=== PATIENT | male | born 1935 | race Caucasian/White ===

== ENCOUNTER 2017-01-21 12:35 | Day surgery (SDC) | payer MEDICARE, BC ==
[2017-01-20 10:28] LABS: HEMOGLOBIN 16.3 g/dL (13.7-18.0)
[2017-01-20 10:35] LABS: BLOOD UREA NITROGEN 13 mg/dL (7-18)
[~2017-01-21] VITALS: Ht 172.7 cm; Wt 95.4 kg
[~2017-01-21 12:35] MED LIST: ASPI-496 PO; ATOR20TA9 PO; CEPH-376 PO; GABA300C10 PO; HYDR-3307 PO; LOSA50TA6 PO; VIT1CAPS10 PO; atorvastatin PO; gabapentin PO
[2017-01-21 13:27] VITALS: BP 137/73
[2017-01-21] MEDS ORDERED: SODIUM CHLORIDE 0.9% 1,000 ML IV SCH (14:07)
[2017-01-21] MEDS ORDERED: LIDOCAINE 2%, 20ML ONE ×2 (14:47→14:55)
[2017-01-21] MEDS ORDERED: MIDAZOLAM 1 MG/ML, 5ML ONE (14:56)
[2017-01-21] MEDS ORDERED: HEPARIN 5,000 UNITS/ML, 1ML ONE (14:57)
[2017-01-21] MEDS ORDERED: FENTANYL PF 100 MCG/2ML ONE (14:57)
[2017-01-21] MEDS ORDERED: FLUMAZENIL 0.1 MG/1 ML, 5ML ONE (14:57)
[2017-01-21] MEDS ORDERED: NALOXONE 1 MG/ML, 2ML ONE (14:58)
[2017-01-21] MEDS ORDERED: VISIPAQUE 270 MG/ML, 150ML BOTTLE ONE (16:07)
[2017-02-11] MEDS ORDERED: CLOP75TA22 PO (07:56)
[2017-02-11] MEDS ORDERED: ENOX40SY4 SQ (07:58)
[2017-02-11] MEDS ORDERED: GABA300C10 PO (07:59)
[2017-02-11] MEDS ORDERED: INSU100V5 SQ-INSULIN (08:00)
[2017-02-11] MEDS ORDERED: ACET325T26 PO (08:01)
[2017-02-11] MEDS ORDERED: DOCU-30 PO (08:02)
[2017-02-11] MEDS ORDERED: HYDR-3138 PO (08:03)
== END 2017-01-21 18:10 | disposition home or self-care (01) ==
LOC: OUT 12:35
PROVIDERS: ATTEND Surgery
DX: I70.223 Atherosclerosis of native arteries of extremities with rest pain, bilateral legs (principal); I70.0 Atherosclerosis of aorta; I10 Essential (primary) hypertension; E78.5 Hyperlipidemia, unspecified; E11.9 Type 2 diabetes mellitus without complications; E66.9 Obesity, unspecified; Z68.32 Body mass index [BMI] 32.0-32.9, adult; Z90.49 Acquired absence of other specified parts of digestive tract; M17.10 Unilateral primary osteoarthritis, unspecified knee; M16.10 Unilateral primary osteoarthritis, unspecified hip; Z87.891 Personal history of nicotine dependence; Z82.49 Family history of ischemic heart disease and other diseases of the circulatory system; Z83.49 Family history of other endocrine, nutritional and metabolic diseases
CPT/HCPCS: 36200; 36415; 75625; 75716; 80048; 85025; C1751; C1769; C1894; J1644; J2250; J2310; J3010; J3490; Q9966; 36215; 36245; 75630; 76937; 99156; 99157

== ENCOUNTER → 2017-01-25 | Outpatient (CLI) | payer MEDICARE, BC | END | disposition home or self-care (01) | LOC: CVU 10:30 | PROVIDERS: ATTEND Surgery | DX: I65.23 Occlusion and stenosis of bilateral carotid arteries (principal) | CPT/HCPCS: 93880 ==

== ENCOUNTER → 2017-03-24 | Outpatient (CLI) | payer MEDICARE, BC ==
[~2017-03-24] MED LIST changes: +ACET325T26 PO; +CLOP75TA22 PO; +DOCU-30 PO; +ENOX40SY4 SQ; +HYDR-3138 PO; +INSU100V5 SQ-INSULIN; +REGADENOSON 0.4 MG/5 ML SYRINGE ONE
== END | disposition home or self-care (01) ==
LOC: CFH 08:59
PROVIDERS: ATTEND Physician Assistant Medical
DX: Z01.810 Encounter for preprocedural cardiovascular examination (principal); I25.9 Chronic ischemic heart disease, unspecified; I08.3 Combined rheumatic disorders of mitral, aortic and tricuspid valves; I37.1 Nonrheumatic pulmonary valve insufficiency
CPT/HCPCS: 78452; 93017; 93306; A9502; J2785

== ENCOUNTER 2017-04-05 14:29 | Emergency (ER) | payer MEDICARE, BC ==
[~2017-04-05] VITALS: Ht 172.7 cm; Wt 95.5 kg
[~2017-04-05 14:29] MED LIST changes: -REGADENOSON 0.4 MG/5 ML SYRINGE ONE
[2017-04-05] MEDS ORDERED: SODIUM CHLORIDE 0.9% 1,000ML IVBOLUS ONE (15:30)
[2017-04-05] MEDS ORDERED: SODIUM CHLORIDE FLUSH 10ML SYR IVF ONE (15:30)
[2017-04-05 15:51] LABS: BLOOD UREA NITROGEN 18 mg/dL (7-18)
[2017-04-05] MEDS ORDERED: DILTIAZEM 5 MG/ML, 5ML ONE ×2 (15:52→17:52)
[2017-04-05 16:06] LABS: IS PT STATUS REG ER OR PRE ER? YES
[2017-04-05 16:20] VITALS: BP 136/46
== END 2017-04-05 17:01 | disposition home or self-care (01) ==
LOC: ED 16:04
DX: R42 Dizziness and giddiness (principal); I10 Essential (primary) hypertension; E78.5 Hyperlipidemia, unspecified; M19.90 Unspecified osteoarthritis, unspecified site; Z90.49 Acquired absence of other specified parts of digestive tract; M54.30 Sciatica, unspecified side; Z87.891 Personal history of nicotine dependence
CPT/HCPCS: 36415; 80048; 82040; 84484; 85025; 93005; 96360; 99285; J7030

== ENCOUNTER 2017-04-19 11:34 | Emergency (ER) | payer MEDICARE, BC ==
[~2017-04-19] VITALS: Ht 172.7 cm; Wt 94.0 kg
[2017-04-19] MEDS ORDERED: ASPI-496 PO (12:01)
[2017-04-19] MEDS ORDERED: METO25TA2 PO (12:01)
[2017-04-19 13:07] LABS: BLOOD UREA NITROGEN 19 mg/dL (7-18)
[2017-04-19 13:22] LABS: IS PT STATUS REG ER OR PRE ER? YES
[2017-04-19] MEDS ORDERED: GADOBUTROL 10 MMOL/10 ML PFS ONE (13:50)
[2017-04-19 14:21] VITALS: BP 122/46
== END 2017-04-19 16:16 | disposition home or self-care (01) ==
LOC: ED 14:49
DX: G25.2 Other specified forms of tremor (principal); I10 Essential (primary) hypertension; M19.90 Unspecified osteoarthritis, unspecified site; E78.5 Hyperlipidemia, unspecified; M54.30 Sciatica, unspecified side; Z90.49 Acquired absence of other specified parts of digestive tract
CPT/HCPCS: 36415; 70553; 71010; 80048; 82040; 84484; 85025; 93005; 99285; A9585

== ENCOUNTER 2017-04-25 05:11 | Inpatient (IN) | payer MEDICARE, BC ==
[~2017-04-25] VITALS: Ht 172.7 cm; Wt 93.0 kg
[~2017-04-25 05:11] MED LIST changes: +METO25TA2 PO
[2017-04-25 06:16] VITALS: BP 145/63
[2017-04-25] MEDS ORDERED: LACTATED RINGERS 1,000 ML IV SCH (06:16)
[2017-04-25] MEDS ORDERED: THROMBIN 20,000 UNIT VIAL TP ONE (07:00)
[2017-04-25] MEDS ORDERED: LIDOCAINE/PF 1%, 30ML ONE (07:00)
[2017-04-25] MEDS ORDERED: PROTAMINE SULFATE 10 MG/ML, 5ML ONE ×2 (07:00→07:51)
[2017-04-25] MEDS ORDERED: PAPAVERINE 30 MG/ML, 2ML ONE (07:00)
[2017-04-25] MEDS ORDERED: BUPIVACAINE/PF-EPI 0.25% 1:200K ONE (07:00)
[2017-04-25] MEDS ORDERED: PNEUMOCOCCAL 23 VACCINE IM-VACC ONE (07:00)
[2017-04-25] MEDS ORDERED: BACITRACIN 50,000 UNIT ONE (07:05)
[2017-04-25] MEDS ORDERED: HEPARIN 1,000 UNITS/ML, 10ML ONE (07:15)
[2017-04-25] MEDS ORDERED: FENTANYL PF 250 MCG/5ML ONE (07:17)
[2017-04-25] MEDS ORDERED: CEFAZOLIN 1,000 MG ONE (07:51)
[2017-04-25] MEDS ORDERED: DEXAMETHASONE 4 MG/ML, 1ML ONE (07:51)
[2017-04-25] MEDS ORDERED: PHENYLEPHRINE 10 MG/ML ONE (07:51)
[2017-04-25] MEDS ORDERED: ROCURONIUM 10 MG/ML ONE (07:51)
[2017-04-25] MEDS ORDERED: ONDANSETRON 2MG/ML, 2ML ONE (07:51)
[2017-04-25] MEDS ORDERED: PROPOFOL 10 MG/ML, 20ML ONE (07:51)
[2017-04-25] MEDS ORDERED: SUCCINYLCHOLINE 20 MG/ML, 10ML ONE (07:51)
[2017-04-25] MEDS ORDERED: MEPERIDINE/PF 25MG/0.5ML IVPush PRN (08:30)
[2017-04-25] MEDS ORDERED: FENTANYL PF 100 MCG/2ML IV PRN (08:30)
[2017-04-25] MEDS ORDERED: ACETAMINOPHEN 325 MG TABLET PO PRN ×2 (08:30→13:00)
[2017-04-25] MEDS ORDERED: OXYcodone 5 MG/5 ML ORAL.SOL UDC PO PRN (08:30)
[2017-04-25] MEDS ORDERED: MIDAZOLAM 1 MG/ML, 2ML IV PRN (08:30)
[2017-04-25] MEDS ORDERED: PROMETHAZINE 25 MG/ML, 1ML IV PRN (08:30)
[2017-04-25] MEDS ORDERED: ONDANSETRON 2MG/ML, 2ML IVPush PRN (08:30)
[2017-04-25] MEDS ORDERED: hydrALAzine 20 MG/ML, 1ML IV PRN ×2 (08:30→13:30)
[2017-04-25] MEDS ORDERED: LABETALOL 5MG/ML, 20ML IV PRN (08:30)
[2017-04-25] MEDS ORDERED: HYDROmorphone 1 MG/ML, 1ML IV PRN (08:30)
[2017-04-25] MEDS ORDERED: ALBUTEROL SULFATE 2.5 MG/3 ML NPPB PRN (08:30)
[2017-04-25] MEDS ORDERED: ASPIRIN 325 MG TABLET PO STA (10:19)
[2017-04-25] MEDS ORDERED: HYDROcodone/APAP 5/325 TABLET PO PRN (13:00)
[2017-04-25] MEDS ORDERED: ONDANSETRON 2MG/ML, 2ML IV PRN (13:00)
[2017-04-25] MEDS ORDERED: LABETALOL 5MG/ML, 20ML IVPush PRN (13:00)
[2017-04-25] MEDS: LACTATED RINGERS 1,000 ML IV SCH ×2 (13:00→23:55)
[2017-04-25] MEDS ORDERED: MORPHINE SULFATE 4 MG/ML, 1ML IV PRN (13:30)
[2017-04-25 14:30] VITALS: BP 105/58
[2017-04-25] MEDS: GABAPENTIN 300 MG CAPSULE PO SCH ×2 (16:44→19:49)
[2017-04-25] MEDS: CEFAZOLIN PMX 2GM/50ML 50 ML IVPB SCH ×2 (16:44→23:39)
[2017-04-25 20:10] VITALS: BP 106/58
[2017-04-25] MEDS ORDERED: ATORVASTATIN 20 MG TABLET PO SCH (21:00)
[2017-04-26 07:16] VITALS: BP 94/52
[2017-04-26] MEDS ORDERED: LOSARTAN 50MG TABLET PO SCH (09:00)
[2017-04-26] MEDS ORDERED: ASPIRIN 325 MG TABLET EC PO SCH (09:00)
[2017-04-26] MEDS: GABAPENTIN 300 MG CAPSULE PO SCH (09:37)
[2017-04-26] MEDS ORDERED: HYDR-3138 PO (10:29)
[2017-04-26] MEDS ORDERED: ASPI-496 PO (10:30)
[2017-04-26] MEDS ORDERED: CLOPIDOGREL 75 MG TABLET PO SCH (10:30)
[2017-04-26] MEDS ORDERED: SENN-25 PO (10:31)
== END 2017-04-26 12:45 | disposition home or self-care (01) | DRG 38 ==
LOC: ORIP 05:11 → 4NOR 12:36
PROVIDERS: ADMIT Surgery; ATTEND Surgery
PROC: 03CK0ZZ Extirpation of Matter from Right Internal Carotid Artery, Open Approach (ICD-10-PCS; 2017-04-25)
PROC: 03CM0ZZ Extirpation of Matter from Right External Carotid Artery, Open Approach (ICD-10-PCS; 2017-04-25)
PROC: 03UH0KZ Supplement Right Common Carotid Artery with Nonautologous Tissue Substitute, Open Approach (ICD-10-PCS; 2017-04-25)
PROC: 03UK0KZ Supplement Right Internal Carotid Artery with Nonautologous Tissue Substitute, Open Approach (ICD-10-PCS; 2017-04-25)
PROC: 03CH0ZZ Extirpation of Matter from Right Common Carotid Artery, Open Approach (ICD-10-PCS; principal; 2017-04-25 07:30)
DX: I65.23 Occlusion and stenosis of bilateral carotid arteries (principal); I74.09 Other arterial embolism and thrombosis of abdominal aorta; I10 Essential (primary) hypertension; E11.9 Type 2 diabetes mellitus without complications; E66.3 Overweight; E78.5 Hyperlipidemia, unspecified; Z68.31 Body mass index [BMI] 31.0-31.9, adult
CPT/HCPCS: 36415; 86850; 86900; C1729; J0690; J1100; J1644; J2405; J2704; J2720; J3010; J3490; C1768; J0330; J2370; J2440; J7120

== ENCOUNTER → 2017-08-05 | Outpatient (CLI) | payer MEDICARE, BC ==
[~2017-08-05] MED LIST changes: -CLOP75TA22 PO; +CLOP75TA52 PO; +DOCU-131 PO; -DOCU-30 PO; -HYDR-3138 PO; +HYDR-3237 PO; +SENN-25 PO
== END | disposition home or self-care (01) ==
LOC: CVU 12:09
PROVIDERS: ATTEND Surgery
DX: I65.23 Occlusion and stenosis of bilateral carotid arteries (principal); Z87.891 Personal history of nicotine dependence; E78.5 Hyperlipidemia, unspecified; I10 Essential (primary) hypertension; M25.559 Pain in unspecified hip; I77.1 Stricture of artery
CPT/HCPCS: 93880; 93922; 93925

== ENCOUNTER → 2018-05-15 | Outpatient (CLI) | payer MEDICARE, BC | END | disposition home or self-care (01) | LOC: CVU 12:13 | PROVIDERS: ATTEND Surgery | DX: I70.202 Unspecified atherosclerosis of native arteries of extremities, left leg (principal); I65.23 Occlusion and stenosis of bilateral carotid arteries; E78.5 Hyperlipidemia, unspecified; I10 Essential (primary) hypertension; Z87.891 Personal history of nicotine dependence | CPT/HCPCS: 93880; 93922; 93925 ==

== ENCOUNTER → 2018-07-07 | Outpatient (CLI) | payer MEDICARE, BC ==
[~2018-07-07] MED LIST changes: +OMNIPAQUE 350 MG/ML, 150 ML BOTTLE ONE
== END | disposition home or self-care (01) ==
LOC: CFH 12:09
PROVIDERS: ATTEND Surgery
DX: I65.23 Occlusion and stenosis of bilateral carotid arteries (principal); Z87.891 Personal history of nicotine dependence
CPT/HCPCS: 75635; 82565; Q9967